=== PATIENT | female | born 2000 | race Hispanic/Latino ===

== ENCOUNTER 2020-04-13 14:10 | Emergency (ER) | payer SELFPAY ==
[~2020-04-13] VITALS: Ht 154.9 cm; Wt 68.0 kg
[2020-04-13 15:06] LABS: CLARITY,URINE CLEAR (CLEAR); COLOR,URINE YELLOW (YELLOW); KETONES,URINE NEGATIVE (NEGATIVE); LEUKOCYTE ESTERASE ,URINE NEGATIVE (NEGATIVE); NITRITE,URINE NEGATIVE (NEGATIVE); PROTEIN,URINE DIPSTICK NEGATIVE (NEGATIVE); URINE UROBILINOGEN 0.2 mg/dL (0.2 - 1)
[2020-04-13 15:15] LABS: AMORPHOUS SEDIMENT,URINE FEW (FEW); BACTERIA,URINE MODERATE /HPF; EPITHELIAL CELLS,URINE MANY /LPF
[2020-04-13 16:34] VITALS: BP 121/69
== END 2020-04-13 16:39 | disposition home or self-care (01) ==
LOC: ER 14:50
DX: O26.851 Spotting complicating pregnancy, first trimester (principal); O20.0 Threatened abortion
CPT/HCPCS: 36415; 76801; 76817; 81001; 84702; 86900; 99284